=== PATIENT | female | born 1995 | race Caucasian/White ===

== ENCOUNTER 2021-02-22 17:01 | Emergency (ER) | payer BC, OTHER ==
[2021-02-22] MEDS ORDERED: Lidocaine 1% 20 ML MDV ONE (17:17)
[2021-02-22] MEDS ORDERED: Bupivacaine PF 0.5% 30 ML VIAL ONE (17:17)
[2021-02-22] MEDS ORDERED: HYDROcodone/Acetaminophen 5/325 mg Tablet ONE (18:50)
== END 2021-02-22 19:28 | disposition home or self-care (01) ==
LOC: MADERS 17:01
DX: S52.531A Colles' fracture of right radius, initial encounter for closed fracture (principal); I49.9 Cardiac arrhythmia, unspecified; W18.09XA Striking against other object with subsequent fall, initial encounter
CPT/HCPCS: 25605; 96372; S0020